=== PATIENT | male | born 1995 | race Caucasian/White ===

== ENCOUNTER → 2019-07-12 | Outpatient (CLI) | payer OTHER ==
[~2019-07-12] MED LIST: ISOVUE-370 76% 100ML VIAL As Ordered ONE
--- NOTE | 2019-07-12 15:09 | REP ---
CT BRAIN WITHOUT AND WITH IV CONTRAST: HISTORY: Dizziness and giddiness. Question intracranial hemorrhage. Trauma 5 days prior. CONTRAST ENHANCEMENT DOSE: 75 mL of intravenous Isovue 370. CT FINDINGS: Digital preliminary chemical detection expert radiograph is unremarkable. Bone window settings show no evidence of skull fracture or bony destructive lesion. Visualized paranasal sinuses are clear. There is no evidence of intracranial hemorrhage. No infarct, mass, extra-axial fluid collection or midline shift is seen. Contrast enhanced study shows enhancement in normal vasculature. No abnormal contrast enhancement is seen. Osei/white differentiation pattern is normal. IMPRESSION: Normal CT study of the brain without and with IV contrast. No evidence of skull fracture, intracranial injury, or other intracranial abnormality. Electronically Signed by Jairo Phillips MD 07/12/2019 03:10 P
== END ==
LOC: M RAD 11:45
PROVIDERS: ATTEND Nurse Practitioner Family
DX: R42 Dizziness and giddiness (principal)
CPT/HCPCS: 70470; Q9967